=== PATIENT | female | born 1995 | race Caucasian/White ===

== ENCOUNTER 2017-01-26 09:54 | Emergency (ER) | payer MEDICAID, OTHER ==
--- NOTE | 2017-01-26 09:58 | UC ---
Skin Complaint HPI - HPI Summary HPI Summary: 21 YEAR OLD FEMALE PRESENTS TO WITH COMPLAINS LICE IN HER HAIR. - History of Current Complaint Time Seen by Provider: 01/26/17 09:58 Stated Complaint: LICE Hx Obtained From: Patient Onset/Duration: Sudden Onset Skin Exposure Onset/Duration: Minutes Ago Onset Severity: Moderate - Allergy/Home Medications Allergies/Adverse Reactions: Allergies Allergy/AdvReac Type Severity Reaction Status Date / Time Amoxicillin Allergy Hives Verified 01/26/17 09:58 Review of Systems Constitutional: Negative Skin: Negative Eyes: Negative ENT: Negative Respiratory: Negative Cardiovascular: Negative Gastrointestinal: Negative Genitourinary: Negative Motor: Negative Neurovascular: Negative Musculoskeletal: Negative Neurological: Negative Psychological: Negative All Other Systems Reviewed And Are Negative: Yes Physical Exam Triage Information Reviewed: Yes Vital Signs Reviewed: Yes Eye Exam: Normal ENT Exam: Normal Dental Exam: Normal Neck exam: Normal Neck: Positive: 1 Respiratory Exam: Normal Cardiovascular Exam: Normal Abdominal Exam: Normal Musculoskeletal Exam: Normal Neurological Exam: Normal Psychological Exam: Normal Skin: Positive: significant lesion(s) - HAIR LICE, Other - HAIR Course/Dx - Diagnoses Provider Diagnoses: HEAD LICE Discharge - Discharge Plan Condition: Stable Disposition: HOME Prescriptions: Ivermectin (Pediculicide) [Sklice] 0.5 % TOPICAL SEE INSTRUCTIONS #1 lot Patient Education Materials: Pediculosis (ED), Body Lice (ED) Referrals: Shakir Diaz, TECHNICAL DIRECTOR [Nurse Practitioner] -
[2017-01-26 10:03] VITALS: BP 117/60
== END 2017-01-26 10:12 | disposition home or self-care (01) ==
LOC: UCEAST 09:54
DX: B85.0 Pediculosis due to Pediculus humanus capitis (principal); Z88.3 Allergy status to other anti-infective agents
CPT/HCPCS: 99212; G0463

== ENCOUNTER 2017-02-05 11:01 | Emergency (ER) | payer OTHER ==
[2017-02-05 11:14] VITALS: BP 118/59
--- NOTE | 2017-02-05 12:49 | UC ---
Skin Complaint HPI - HPI Summary HPI Summary: PT SEEN HERE 01/26/17 AND TX FOR HEAD LICE WITH TOPICAL IVERMECTIN. STATES HER SX ARE RESOLVED BUT STILL THINKS SHE HAS NITS SO CAME FOR RECHECK. - History of Current Complaint Chief Complaint: UCGeneralIllness Time Seen by Provider: 02/05/17 12:25 Stated Complaint: RECHECK FOR HEAD LICE Hx Obtained From: Patient Hx Last Menstrual Period: 02/04/17 Onset/Duration: Gradual Onset, Lasting Days, Resolved Onset Severity: Moderate Current Severity: None Pain Intensity: 0 Pain Scale Used: 0-10 Numeric Aggravating Factor(s): Nothing Alleviating Factor(s): Treatment HOSPITAL PHARMACY DIRECTOR: - IVERMECTIN TOPICAL Associated Signs & Symptoms: Positive: Negative - Allergy/Home Medications Allergies/Adverse Reactions: Allergies Allergy/AdvReac Type Severity Reaction Status Date / Time Amoxicillin Allergy Hives Verified 01/26/17 09:58 Home Medications: Home Medications NK [No Home Medications Reported] 02/05/17 [History Confirmed 02/05/17] Review of Systems Constitutional: Negative Skin: Negative Respiratory: Negative Cardiovascular: Negative Gastrointestinal: Negative All Other Systems Reviewed And Are Negative: Yes PMH/Surg Hx/FS Hx/Imm Hx Previously Healthy: Yes - Surgical History Surgical History: None - Family History Known Family History: Negative: Hypertension - Social History Alcohol Use: None Substance Use Type: None Smoking Status (MU): Never Smoked Tobacco Physical Exam Triage Information Reviewed: Yes Appearance: Well-Appearing, No Pain Distress, Well-Nourished Vital Signs: Initial Vital Signs Temp 98.3 F 02/05/17 11:10 Pulse 66 02/05/17 11:10 Resp 18 02/05/17 11:10 BP 118/59 02/05/17 11:10 Pulse Ox 100 02/05/17 11:10 Vital Signs Reviewed: Yes Eyes: Positive: Conjunctiva Clear ENT: Positive: Hearing grossly normal Neck: Positive: Supple Respiratory: Positive: No respiratory distress, No accessory muscle use Cardiovascular: Positive: Pulses Normal Abdomen Description: Positive: Soft Musculoskeletal: Positive: No Edema Neurological: Positive: Alert Psychological: Positive: Age Appropriate Behavior Skin: Positive: Other - NITS ON HAIR SHAFTS. NO LIVE NITS OR MITES SEEN. Negative: rashes Course/Dx - Course Course Of Treatment: NO LIVE MITES SEEN. JUST NITS. ADVISED TO CONTINUE COMBING THEM OUT. - Diagnoses Provider Diagnoses: HEAD LICE - ADEQUATELY TREATED Discharge - Discharge Plan Condition: Stable Disposition: HOME Patient Education Materials: Pediculosis (ED) Referrals: No Primary Care Phys,NOPCP [Primary Care Provider] - Additional Instructions: NO VISIBLE ACTIVE HEAD LICE SEEN TODAY. CONTINUE TO COMB THE NITS OUT AND WASH YOUR SHEETS. IF YOU HAVE RECURRENT SYMPTOMS OR ARE HAVING TROUBLE GETTING ALL THE NITS OUT CONSIDER MAKING AN APPT WITH [facility]. [facility] Address: [place], [place] Hours: MON-SAT [id number]. CLOSED FRIDAY CALL THE NUMBER BELOW FOR ASSISTANCE IN ESTABLISHING WITH A PCP An additional resource available to assist in finding the appropriate physician for your health care needs is [facility] ([facility]). You may contact them by calling [phone].
== END 2017-02-05 12:50 | disposition home or self-care (01) ==
LOC: UCEAST 11:01
DX: B85.0 Pediculosis due to Pediculus humanus capitis (principal)
CPT/HCPCS: 99211; G0463

== ENCOUNTER 2017-07-10 23:25 | Emergency (ER) | payer OTHER ==
[2017-07-11] MEDS ORDERED: Ibuprofen TAB* 800 MG PO ONE (00:22)
--- NOTE | 2017-07-11 00:35 | ED ---
Influenza-Like Illness - HPI Summary HPI Summary: 22-year-old female presents with flulike symptoms for the past 2 days. She states she has been very fatigued. She admits to intermittent fevers. She admits to a dry cough. She admits to occasional shortness of breath. She has nausea but denies any vomiting or diarrhea. She denies any bowel pain. She states she just aches all over. She admits to sore throat and sinus congestion. No one else is sick. She has no medical conditions. she goes [place]. Patient has not taking anything for her fever in 12 hours. - History of Current Complaint Chief Complaint: EDFluSymptoms Time Seen by Provider: 07/11/17 00:33 - Allergy/Home Medications Allergies/Adverse Reactions: Allergies Allergy/AdvReac Type Severity Reaction Status Date / Time amoxicillin Allergy Hives Verified 07/10/17 23:33 PMH/Surg Hx/FS Hx/Imm Hx Endocrine/Hematology History: Denies: Hx Anticoagulant Therapy Respiratory History: Denies: Hx Asthma Infectious Disease History: No Infectious Disease History: Denies: Traveled Outside the in Last 30 Days - Family History Known Family History: Negative: Hypertension - Social History Alcohol Use: None Substance Use Type: Reports: None Smoking Status (MU): Never Smoked Tobacco Review of Systems Positive: Fever, Fatigue Positive: Sore Throat, Nasal Discharge Negative: Chest Pain Positive: Shortness Of Breath, Cough Positive: Nausea. Negative: Abdominal Pain, Vomiting, Diarrhea All Other Systems Reviewed And Are Negative: Yes Physical Exam Triage Information Reviewed: Yes Vital Signs On Initial Exam: Initial Vitals Temp Pulse Resp BP Pulse Ox 101.9 F 121 16 126/74 99 07/10/17 23:31 07/10/17 23:31 07/10/17 23:31 07/10/17 23:31 07/10/17 23:31 Vital Signs Reviewed: Yes Appearance: Positive: Ill-Appearing Skin: Positive: Warm, Dry Head/Face: Positive: Normal Head/Face Inspection Eyes: Positive: Normal, EOMI, SILVER, Conjunctiva Clear ENT: Positive: Normal ENT inspection, Pharynx normal, TMs normal Neck: Positive: Supple, Nontender, No Lymphadenopathy Respiratory/Lung Sounds: Positive: Clear to Auscultation, Breath Sounds Present Cardiovascular: Positive: Normal, RRR Abdomen Description: Positive: Nontender, Soft Bowel Sounds: Positive: Present Musculoskeletal: Positive: Normal Neurological: Positive: Normal Psychiatric: Positive: Normal Diagnostics - Vital Signs Vital Signs Temp Pulse Resp BP Pulse Ox 07/10/17 23:31 101.9 F 121 16 126/74 99 - Laboratory Lab Results: Lab Results 07/10/17 Range/Units 23:36 Influenza A (Rapid) Negative (Negative) Influenza B (Rapid) Positive A (Negative) Lab Statement: Any lab studies that have been ordered have been reviewed, and results considered in the medical decision making process. Flu Symptom Course/Dx - Course Course Of Treatment: 22-year-old female presents with flulike symptoms for the past 2 days. She states she has been very fatigued. She admits to intermittent fevers. She admits to a dry cough. She admits to occasional shortness of breath. She has nausea but denies any vomiting or diarrhea. She denies any bowel pain. She states she just aches all over. She admits to sore throat and sinus congestion. No one else is sick. She has no medical conditions. she goes [place]. On exam lungs clear to auscultation. Appears ill. Pharynx normal. Flu B+. Gave dosed with Tylenol and ibuprofen here. Will start Tamiflu. Told to continue Tylenol ibuprofen. Patient understands agrees the plan. - Diagnoses Differential Diagnosis/HQI/PQRI: Positive: Influenza, Pneumonia, Upper Respiratory Infection Provider Diagnoses: Influenza Discharge - Sign-Out/Discharge Documenting (check all that apply): Discharge - Discharge Plan Condition: Stable Disposition: HOME Prescriptions: Oseltamivir CAP* [Tamiflu CAP*] 75 mg PO BID #9 cap Patient Education Materials: Influenza (ED) Forms: *School Release, *Work Release Referrals: [facility] - [facility] [Primary Care Provider] - Additional Instructions: Take Tamiflu twice for 5 days first dose given in ED Take Tylenol and ibuprofen for muscle aches and fever every 6 hours Try to drink fluids every hour and eat a small snack every 3 hours Return to ED if develop any new or worsening symptoms - Billing Disposition and Condition Condition: STABLE Disposition: HOME
[2017-07-11] MEDS ORDERED: Acetaminophen TAB* 325 MG PO ONE (00:36)
[2017-07-11] MEDS ORDERED: Oseltamivir CAP* 75 MG CAP PO ONE (00:49)
[2017-07-11 02:01] VITALS: BP 101/52
== END 2017-07-11 02:01 | disposition home or self-care (01) ==
LOC: ED 23:25
DX: J11.1 Influenza due to unidentified influenza virus with other respiratory manifestations (principal); R53.83 Other fatigue; R50.9 Fever, unspecified; J02.9 Acute pharyngitis, unspecified; R06.02 Shortness of breath; R05 Cough; R11.0 Nausea
CPT/HCPCS: 87502; 99283; A9270-GY